=== PATIENT | female | born 1945 | race Caucasian/White ===

== ENCOUNTER 2021-11-26 02:03 | Emergency (ER) | payer OTHER ==
--- OUTSIDE RECORDS SUMMARY | 2021-11-26 02:06 | XMS REPORT | Continuity of Care Document ---
:1945 Author Organization [facility] t Address [address] [place] [address] Care Team Providers Name Role Phone Tylor Reddy MD Primary Care Physician [phone] Kanchan Woodson Attending Clinician Unavailable Yomi CUMMINGS, Avani Rodriguez Attending Clinician [phone] FIONA JUNG Attending Clinician Unavailable FIONA JUNG Admitting Clinician Unavailable Payers Payer Name Policy Type Policy Number Effective Date Expiration Date S ource Problems Condition Condition Condition Status Onset Resolution Last Treating Co mments Source Name Details Category Date Date Treatment Clinician Date Colon Colon Disease Active [facility] Dysphagia Dysphagia Disease Active [facility] Peptic Peptic Disease Active [facility] ulcer [facility] GERD GERD Disease Active [facility] (gastroeso (gastroeso st phageal phageal Hospita reflux reflux l disease) disease) Musculoske Musculoske Disease Active M ethodi letal pain letal pain [facility] Allergies, Adverse Reactions, Alerts Allergy Allergy Status Severity Reaction(s) Onset Inactive Treating Comm ents Source Name Type Date Date Clinician No Known DA Active U 2017-03 [facility] 03-28 [place] [facility] No Known DA Active U [facility] 04-28 [facility] [place] Family History Family Member Diagnosis Comments Start Date Stop Date Source Natural father [facility] Natural mother [facility] Social History Social Habit Start Date Stop Date Quantity Comments Source Alcohol intake 2021-04-10 2021-04-10 Ex-drinker [facility] 00:00:00 00:00:00 (finding) Hospital Tobacco use and 2019-07-27 2019-07-27 Smokeless tobacco [facility] exposure 00:00:00 00:00:00 non-user Hospital Sex Assigned At [birth year] [facility] 00:00:00 00:00:00 Hospital Smoking Status Start Date Stop Date Source Never smoked tobacco [facility] ospital Medications Ordered Filled Start Stop Current Ordering Indication Dosage Frequency Signature Comments Components Source Medication Medication Date Date Medication? Clinician (SIG) Name Name rodri Yes Apply [facility] acid-niacin 04-[address] amide 15-4 15:08: Hospita % cream 08 l citalopram Yes 1{tbl} QD Take 1 Met hodi (CeleXA) 10 2-[address] MG tablet 15:08: mouth Hospita 08 daily. l aspirin 81 0 Yes 1{tbl} 1 tablet. [facility] mg capsule 04-10 st 15:08: Hospita 08 l pravastatin 0 Yes 40mg QD Take 40 mg [facility] (PRAVACHOL) 2-[address] 40 mg 15:07: daily. Hospita tablet 19 l valsartan Yes 80mg QD Take 80 mg Me thodi (DIOVAN) 80 2-[address] MG tablet 15:07: daily. Hospit a 19 l valsartan Yes [facility] (DIOVAN) 40 1-25 st MG tablet 00:00: Hospita 00 l levothyroxi 0 Yes 1 tablet Me thodi ne 3-[address] (SYNTHROID) 00:00: morning on Hospita 50 mcg 00 an empty l tablet stomach omeprazole Yes [id number] 40mg Q.5D Take 1 [facility] (PriLOSEC) 5-[address] 40 MG 00:00: (40 mg Hospita capsule 00 total) by l mouth 2 (two) times a day. Vital Signs Vital Name Observation Time Observation Value Comments Source Systolic blood 2021-04-10 21:03:00 150 mm[Hg] Method [facility] pressure Diastolic blood 2021-04-10 21:03:00 69 mm[Hg] [facility] pressure Heart rate 2021-04-10 21:03:00 88 /min [facility] Body temperature 2021-04-10 21:03:00 36.72 Amanda [facility] Respiratory rate 2021-04-10 21:03:00 12 /min [facility] Body height 2021-04-10 21:03:00 157.5 cm [facility] Body weight 2021-04-10 21:03:00 65.227 kg [facility] BMI 2021-04-10 21:03:00 26.30 kg/m2 [facility] Procedures This patient has no known procedures. Plan of Care Planned Activity Planned Date Details Comments Source Future Scheduled 2021-10-30 HEPATITIS B VACCINES Met [facility] Test 12:00:03 (1 of 3 - 3-dose series) [code = HEPATITIS B VACCINES (1 of 3 - 3-dose series)] Future Scheduled 2021-10-30 COVID-19 VACCINE (#1) [facility] Test 12:00:03 [code = COVID-19 VACCINE (#1)] Future Scheduled 2021-10-30 Hepatitis C screening [facility] Test 12:00:03 (procedure) [code = 312094747] Future Scheduled 2021-10-30 SHINGLES VACCINES (1 Met [facility] Test 12:00:03 of 2) [code = SHINGLES VACCINES (1 of 2)] Future Scheduled 2021-10-30 65+ [facility]03 VACCINE (2 - PCV) [code = 65+ PNEUMOCOCCAL VACCINE (2 - PCV)] Future Scheduled 2021-10-30 INFLUENZA VACCINE Method [facility] Test 12:00:03 [code = INFLUENZA VACCINE] Encounters Start End Encounter Admission Attending Care Care Encounter Source Date/Time Date/Time Type Type Clinicians Facility Department ID 2021-03-27 Outpatient Kanchan Woodson [facility] [id number] 2 Common 12:45:53 [id number] [facility] 2021-03-27 Outpatient Woodson, Na [facility] [id number] 2 Common 12:45:31 [id number] [facility] 2021-03-27 Outpatient Woodson, Na [facility] [id number] 2 Common 12:39:58 [id number] [facility] 2021-03-27 Outpatient [facility] Common 12:39:28 [id number] [facility] 2021-03-27 Outpatient [facility] Common 12:28:59 [id number] [facility] 2021-04-10 2021-04-10 [facility] [id number] [facility] 15:00:00 16:58:36 Visit Avani Quinteron [id number] 3.430.2.7 Hospit a .3.459931 l .8 2021-04-10 2021-04-10 [facility] [id number] [place] 00:00:00 00:00:00 AVANI Azevedo[address] [facility] [address] 2021-04-10 2021-04-10 Travel 1.2.840.1 [id number] [id number] [facility] 00:00:00 00:00:[address] 3.430.2.7 0.2.7.3.698 [facility]84.8 l .8 2020-08-13 2020-08-13 Outpatient [facility] [id number] Common 00:00:00 00:00:00 [facility] 2020-08-08 2020-08-08 Outpatient STLMLC STL[facility] [id number] Common 00:00:00 00:00:00 [facility] 2020-05-29 2020-05-29 Outpatient STLMLC STL[facility] [id number] Common 00:00:00 00:00:00 [facility] 2020-05-14 2020-05-14 Outpatient STLMLC STL[facility] [id number] Common 00:00:00 00:00:00 [facility] 2020-04-05 2020-04-05 [facility] [id number] Common 00:00:00 00:00:00 [facility] 2019-08-04 2019-08-04 Outpatient [facility] [id number] [place] 00:00:00 00:00:00 FIONA [address] Results Test Description Test Time Test Comments Results Result [facility] e Comments - USG NDL 2018-08-18 Patient Name: PLACEMENT 13:20:00 KRISTAL GUERRERO (Bxg/Asp) Unit No: [id number] EXAMS: CPT CODE: [id number] USG NDL PLACEMENT (Bxg/Asp) 22090 INDICATION: Right knee pain. PROCEDURE: Ultrasound guided cryoneurolysis of the anterior femoral cutaneous nerve superior and inferior branches of the infrapatellar nerve. PIERCING MILL OPERATOR: Dr. Chandra. MEDICATIONS: 1 % Lidocaine local anesthesia CONTRAST: None. COMPLICATION: None immediately evident. DESCRIPTION: After the procedure, including indication and potential complications had been discussed with the patient and questions answered, written informed consent was obtained. The patient was then taken to the ultrasound suite and placed on the table in supine position where skin of the right knee was evaluated sonographically. The skin was marked using ultrasound guidance. The skin was then prepped and draped sterilely. A time out was performed. After achieving 1% Lidocaine local anesthesia, the Iovera device, composed of three hollow closed-tip 27 gauge 6 mm needles, was introduced percutaneously at the target site as marked sonographically. At each target site, the Iovera device was activated over a 60 second cycle, creating a cold zone at the target site. Following each cycle, the probe was removed and advanced to the next target site. No immediate complication were observed. The patient tolerated the procedure well and was subsequently discharged in stable condition. Preprocedural pain level: 3/ 10 Postprocedural pain level: 1/ 10 IMPRESSION: Cryoneurolysis of the anterior femoral cutaneous nerve superior and inferior branches of the infrapatellar nerve as above. at 1320 Reported and signed by: Matteo Chandra MD CC: Tylor Reddy MD; Jorge Nascimento MD Technologist: Kristi Miramontes RT(R),(CT),RVT Transcribed D/ (1320) Far[facility] NAME: KRISTAL GUERRERO [id number] [facility] PHYS: Jorge Matamoros MD : 1945 AGE: 73 SEX: F [place] [address] LOC: Y.RAD PHONE #: [phone] EXAM DATE: 08/12/2018 STATUS: DEP CLI FAX #: [phone] RAD #: D/C DT PAGE 1 Signed Report Patient Name: KRISTAL GUERRERO Unit No: [id number] EXAMS: CPT CODE: [id number] USG NDL PLACEMENT (Bxg/Asp) 58161 (Continued) Orig Print D/T: S: 08/18/2018 (1324) [facility] NAME: KRISTAL GUERRERO [id number] [facility] PHYS: Jorge Matamoros MD : 1945 AGE: 73 SEX: F [place] [address] LOC: Y.RAD PHONE #: [phone] EXAM DATE: 08/12/2018 STATUS: DEP CLI FAX #: [phone] RAD #: D/C DT PAGE 2 Signed Report
[2021-11-26] MEDS ORDERED: NA CHLORIDE 0.9% 1,000 ML ONE (03:06)
[2021-11-26 03:11] LABS: Urine Blood 3+ (Negative); Urine Glucose Negative (Negative); Urine Protein Negative (Negative); Urine Specific Gravity >=1.030 (1.005-1.030); Urine pH 5.5 (5.0-7.0)
[2021-11-26 03:29] LABS: Urine Bacteria <20 /HPF (<20); Urine Mucus 2+ /HPF (None Seen); Urine RBC >50 /HPF (None Seen)
[2021-11-26 03:35] LABS: Absolute Lymphocytes (CBC) 1.6 K/uL (0.7-4.9); Hematocrit 37.3 % (36.0-45.0); Lymphocytes % 16.7 % (15.3-44.8); MCV 89.8 fL (80-100); MPV 10.2 fL (7.6-11.3); RBC Red Blood Cell Count 4.15 M/uL (3.86-4.86)
[2021-11-26 03:47] LABS: Albumin 3.7 g/dL (3.4-5.0); Bilirubin Total 0.3 mg/dL (0.2-1.0); Potassium 4.3 mmol/L (3.5-5.1); Protein, Total 6.6 g/dL (6.4-8.2); Troponin High Sensitivity 4.6 pg/mL (<58.9)
--- NOTE | 2021-11-26 04:32 | ER ---
Nurse's Notes [facility] Name: Kristal Amaya Age: 76 yrs Sex: Female : 1945 Arrival Date: 11/26/2021 Time: 02:05 Bed 8 Private MD: Diagnosis: Right flank pain;Hematuria Presentation: 11/26 02:29 Chief complaint: Patient states: she started having some back pain last night similar bb to what she experienced in the past when she had a kidney stone. She is also having a little difficulty with urinating. Coronavirus screen: At this time, the client does not indicate any symptoms associated with coronavirus-19. Ebola Screen: No symptoms or risks identified at this time. Initial Sepsis Screen: Does the patient meet any 2 criteria? No. Patient's initial sepsis screen is negative. Does the patient have a suspected source of infection? No. Patient's initial sepsis screen is negative. Risk Assessment: Do you want to hurt yourself or someone else? Patient reports no desire to harm self or others. Onset of symptoms was November 26, 2021. 02:29 Method Of Arrival: Ambulatory bb 02:29 Acuity: EVELYNE 3 bb Historical: - Allergies: 02:33 No Known Allergies; bb - Immunization history:: Moderna x 3. - Social history:: Smoking status: Patient denies any tobacco usage or history of. Screenin:30 Abuse screen: Denies threats or abuse. Nutritional screening: No deficits noted. jb4 Tuberculosis screening: No symptoms or risk factors identified. 02:30 Fall Risk None identified. jb4 Assessment: 02:30 General: Appears in no apparent distress. comfortable, Behavior is calm, cooperative, jb4 appropriate for age. Pain: Complains of pain in right low back Pain radiates to right lower quadrant Pain currently is 3 out of 10 on a pain scale. Neuro: Level of Consciousness is awake, alert, obeys commands, Oriented to person, place, time, situation. Cardiovascular: Patient's skin is warm and dry. Respiratory: Airway is patent Respiratory effort is even, unlabored, Respiratory pattern is regular, symmetrical. GI: Abdomen is flat, non-distended. : Reports pain in right in lower back. EENT: No signs and/or symptoms were reported regarding the EENT system. Derm: Skin is intact, Skin is pink, warm \T\ dry. Musculoskeletal: Circulation, motion, and sensation intact. Range of motion: intact in all extremities. 03:30 Reassessment: Patient appears in no apparent distress at this time. Patient and/or jb4 family updated on plan of care and expected duration. Pain level reassessed. Patient is alert, oriented x 3, equal unlabored respirations, skin warm/dry/pink. 04:17 Reassessment: Patient appears in no apparent distress at this time. Patient and/or jb4 family updated on plan of care and expected duration. Pain level reassessed. Patient is alert, oriented x 3, equal unlabored respirations, skin warm/dry/pink. Vital Signs: 02:29 BP 172 / 91; Pulse 66; Resp 16 S; Temp 99(O); Pulse Ox 98% on R/A; Weight 65.77 kg (R); bb Height 5 ft. 3 in. (160.02 cm) (R); Pain 3/10; 03:30 BP 154 / 54; Pulse 65; Resp 16; Pulse Ox 97% on R/A; jb4 04:15 BP 156 / 65; Pulse 69; Resp 16; Pulse Ox 96% on R/A; jb4 02:29 Body Mass Index 25.69 (65.77 kg, 160.02 cm) bb ED Course: 02:05 Patient arrived in ED. bp1 02:08 Vane Powers MD is Attending Physician. sd2 02:30 Patient has correct armband on for positive identification. Placed in gown. Bed in low jb4 position. Call light in reach. Side rails up X 1. Client placed on continuous cardiac and pulse oximetry monitoring. NIBP monitoring applied. 02:33 Triage completed. bb 02:33 Arm band placed on Patient placed in an exam room, on a stretcher, on pulse oximetry. bb Family accompanied patient. 03:10 Initial lab(s) drawn, by me, sent to lab. Inserted saline lock: 18 gauge in right jb4 antecubital area, using aseptic technique. Blood collected. 03:28 Abdomen In Process Unspecified. EDMS 04:16 Tristen Nolasco, RN is Primary Nurse. jb4 04:46 No provider procedures requiring assistance completed. IV discontinued, intact, jb4 bleeding controlled, No redness/swelling at site. Pressure dressing applied. Administered Medications: 03:14 Drug: NS 0.9% 1000 ml Route: IV; Rate: 1 bolus; Site: right antecubital; jb4 04:45 Follow up: Response: No adverse reaction; IV Status: Order to discontinue infusion; IV jb4 Intake: 900ml ; Pt discharged Medication: 04:15 VIS not applicable for this client. jb4 Intake: 04:45 IV: 900ml; Total: 900ml. jb4 Outcome: 04:32 Discharge ordered by . [email or web address] 04:46 Discharged to home ambulatory, with family. jb4 04:46 Condition: stable 04:46 Discharge instructions given to patient, family, Instructed on discharge instructions, follow up and referral plans. Demonstrated understanding of instructions, follow-up care. 04:47 Patient left the ED. jb4 Signatures: Dispatcher [employer] EDMadeline Randolph RN RN Tristen Markham RN RN jb4 Sana Tabor Stephanie, MD MD sd2
--- NOTE | 2021-11-26 04:32 | EDPHYS ---
Physician Documentation [facility] Name: Kristal Amaya Age: 76 yrs Sex: Female : 1945 Arrival Date: 11/26/2021 Time: 02:05 Bed 8 Private MD: ED Physician Vane Powers HPI: 11/26 02:27 This 76 yrs old Female presents to ER via Unassigned with complaints of Possible Kidney sd2 Stone. 02:27 76 yo F presents with CC of possible kidney stone. She states she has had R sided flank sd2 pain that started last night and was initially very severe but has since improved since she took 2 Tylenol at home. The pain radiates around into the R groin area. Pt also reports pain in similar area but lower and different character than tonight that started in May. She reports her doctor told her it was "shingles on the inside" and that she had scans and tests performed then that did not show any other problems. She has only had one other kidney stone in the past in 2012 that required lithotripsy. Endorses associated nausea without vomiting. Denies fever, diarrhea or urinary symptoms.. Historical: - Allergies: 02:33 No Known Allergies; bb - Immunization history:: Moderna x 3. - Social history:: Smoking status: Patient denies any tobacco usage or history of. ROS: 02:27 Constitutional: Negative for fever, chills, and weight loss, Eyes: Negative for injury, sd2 pain, redness, and discharge, ENT: Negative for injury, pain, and discharge, Cardiovascular: Negative for chest pain, palpitations, and edema, Respiratory: Negative for shortness of breath, cough, wheezing. 02:27 : Negative for dysuria, urinary frequency, hesitancy, urgency and hematuria. MS/Extremity: Negative for injury and deformity, Skin: Negative for injury, rash, and discoloration, Neuro: Negative for headache, numbness and tingling. 02:27 Abdomen/GI: Positive for abdominal pain, nausea, flank pain, Negative for diarrhea. Exam: 02:27 Constitutional: This is a well developed, well nourished patient who is awake, alert, sd2 and in no acute distress. Head/Face: Normocephalic, atraumatic. Eyes: EOMI, normal conjunctiva bilaterally Chest/axilla: Normal chest wall appearance and motion. Nontender with no deformity. Cardiovascular: Regular rate and rhythm with a normal S1 and S2. No gallops, murmurs, or rubs. 2+ distal pulses. Respiratory: Lungs have equal breath sounds bilaterally, clear to auscultation and percussion. No rales, rhonchi or wheezes noted. No increased work of breathing, no retractions or nasal flaring. Abdomen/GI: Soft, non-tender, with normal bowel sounds. No guarding or rebound. No evidence of tenderness throughout. R CVA tenderness present. Skin: Warm, dry with normal turgor. Normal color with no rashes, no lesions, and no evidence of cellulitis. MS/ Extremity: Pulses equal, no cyanosis. Neurovascular intact. Full, normal range of motion. Ambulatory without difficulty. Psych: Awake, alert, with orientation to person, place and time. Behavior, mood, and affect are within normal limits. 03:15 ECG was reviewed by the Attending Physician. NSR, rate 66, no STEMI criteria sd2 Vital Signs: 02:29 BP 172 / 91; Pulse 66; Resp 16 S; Temp 99(O); Pulse Ox 98% on R/A; Weight 65.77 kg (R); bb Height 5 ft. 3 in. (160.02 cm) (R); Pain 3/10; 03:30 BP 154 / 54; Pulse 65; Resp 16; Pulse Ox 97% on R/A; jb4 04:15 BP 156 / 65; Pulse 69; Resp 16; Pulse Ox 96% on R/A; jb4 02:29 Body Mass Index 25.69 (65.77 kg, 160.02 cm) bb MDM: 02:25 Patient medically screened. sd2 02:27 Differential Diagnosis Gastritis, cholecystitis, pancreatitis, SBO, diverticulitis, sd2 kidney stone, appendicitis, UTI, dehydration, electrolyte abnormality among others. Data reviewed: vital signs, nurses notes. 04:30 Data reviewed: lab test result(s), EKG, radiologic studies. Counseling: I had a sd2 detailed discussion with the patient and/or guardian regarding: the historical points, exam findings, and any diagnostic results supporting the discharge/admit diagnosis, lab results, radiology results, the need for outpatient follow up, to return to the emergency department if symptoms worsen or persist or if there are any questions or concerns that arise at home. Medical screen evaluation completed. [facility] emergency medical condition absent. ED course: Labs and imaging reviewed. Labs with no acute abnormalities. UA with hematuria without infection. CTAP with no evidence of stone or other acute pathology. Suspect recently passed kidney stone as patient's pain is much improved at time of repeat evaluation and she was able to urinate here without pain or discomfort. Pt is comfortable with plan for discharge and outpatient follow up. Verbalizes understanding of strict return precautions. . 11/26 03:11 Order name: Urine Microscopic Only; Complete Time: 03:33 EDMS 11/26 02:57 Order name: Abdomen EDMD 11/26 03:11 Order name: Urine Dipstick-Ancillary; Complete Time: 03:33 EDMD 11/26 03:31 Order name: Comprehensive Metabolic Panel; Complete Time: 04:19 EDMD 11/26 03:31 Order name: Troponin High Sensitivity; Complete Time: 04:19 EDMD 11/26 03:31 Order name: Lipase; Complete Time: 04:19 EDMD 11/26 03:31 Order name: CBC with Automated Diff; Complete Time: 04:19 EDMS 11/26 02:27 Order name: EKG - Nurse/Tech; Complete Time: 03:00 sd2 11/26 02:27 Order name: Urine Dipstick-Ancillary (obtain specimen); Complete Time: 03:00 sd2 Administered Medications: 03:14 Drug: NS 0.9% 1000 ml Route: IV; Rate: 1 bolus; Site: right antecubital; jb4 04:45 Follow up: Response: No adverse reaction; IV Status: Order to discontinue infusion; IV jb4 Intake: 900ml ; Pt discharged Disposition Summary: 11/26/21 04:32 Discharge Ordered Location: Home sd2 Problem: new sd2 Symptoms: have improved sd2 Condition: Stable sd2 Diagnosis - Right flank pain sd2 - Hematuria sd2 Followup: sd2 - With: Private Physician - When: 2 - 3 days - Reason: Recheck today's complaints, Continuance of care, Re-evaluation by your physician Discharge Instructions: - Discharge Summary Sheet sd2 - Flank Pain, Adult sd2 - Hematuria, Adult sd2 - Dietary Guidelines to Help Prevent Kidney Stones sd2 Forms: - Medication Reconciliation Form sd2 - Thank You Letter sd2 - Antibiotic Education sd2 - Prescription Opioid Use sd2 Signatures: Dispatcher [employer] Madeline Vincent RN RN bb Tristen Nolasco RN RN jb4 Vane Powers MD MD sd2
--- NOTE | 2021-11-27 10:52 | RAD REPORT ---
EXAM DESCRIPTION: CT - Abdomen Pelvis Wo Contrast - 11/26/2021 3:26 am Abdomen Pelvis Wo Contrast 11/26/2021 3:44 AM CDT CLINICAL HISTORY: 76 years, Female, RIGHT FLANK PAIN; HX OF KIDNEY STONES COMPARISON: None. TECHNIQUE: Multiple transaxial tomograms of the abdomen and pelvis were performed from the lung base s to the symphysis pubis 5 mm slice thickness at 5 mm interval reconstruction, without administration of IV and oral contrast. Multiplanar reformats in the sagittal and coronal plane were generated and reviewed. This exam was performed according to our departmental dose-optimization protocol, which includes auto mated exposure control, adjustment of the mA and/or kV according to patient size and/or use of iterat leanna reconstruction technique. FINDINGS: The lack of IV and oral contrast limits evaluation of solid organs, subtle lesions cannot be excluded. The lung bases demonstrate to be clear. Grossly the unopacified liver, gallbladder, pancreas, spleen and adrenal glands demonstrate to be wit hin normal limits, no significant focal lesions were identified. The kidneys demonstrate grossly unremarkable. There is no evidence for nephrolithiasis and/or hydro nephrosis. There is is a lower pole left renal cyst measuring 2.9 x 2.2 cm on axial image 31. No foll ow-up is recommended. Grossly the unopacified stomach, small bowel and large bowel demonstrate to be within normal limits. There is no evidence for bowel dilatation/or free air. There is mild fecal stasis. There is minimal d iverticulosis within the sigmoid colon The urinary bladder demonstrate to be within normal limits. The uterus is atrophic. There is a right adnexal cystic lesion measuring 3.4 x 3 cm on image 59. The aorta demonstrate minimal atheromatous pl aque formation. There is no retroperitoneal lymphadenopathy. There is no evidence for ascites. Th e bone windows demonstrate mild diffuse bony osteopenia. Degenerative grade 1 spondylolisthesis at L4 /5. IMPRESSION: No evidence for nephrolithiasis and/or hydronephrosis. 3.4 cm right adnexal simple-appearing cyst, not adequately characterized. Recommend prompt follow-up with pelvic US. Mild fecal stasis. Electronically signed by: Carroll Hidalgo MD 11/26/2021 3:48 AM CDT Due to temporary technical issues with the PACS/Fluency reporting system, reports are being signed by the in house radiologists without review as a courtesy to insure prompt reporting. The interpreting radiologist is fully responsible for the content of the report.
--- NOTE | 2021-11-27 13:09 | EKG ---
Test Date: 2021-11-26 Test Time: 02:53:58 Wood Cabinet Finisher: [place] MEASUREMENT RESULTS: Intervals: Rate: 66 DC: 182 QRSD: 58 QT: 404 QTc: 423 [place]: P: 37 DC: 182 QRS: 31 T: 66 INTERPRETIVE STATEMENTS: Normal sinus rhythm Nonspecific ST abnormality Abnormal ECG Compared to ECG 06/23/2012 19:34:07 ST (T wave) deviation now present Electronically Signed On 11-27-21 13:05:48 CDT by Florencio Aviles
[2021-11-28 16:36] VITALS: TEMP 99
[2021-11-28 16:38] VITALS: BP 156/65; O2SAT 96
== END 2021-11-26 04:47 | disposition home or self-care (01) ==
LOC: ER 02:03
DX: R10.9 Unspecified abdominal pain (principal); R31.9 Hematuria, unspecified; R11.0 Nausea
CPT/HCPCS: 96361; 93005; 85025; 36415; 84484; 83690; 80053; 74176; 96360; 99284; J7030; 81003; 81015